=== PATIENT | female | born 1985 | race Caucasian/White ===

== ENCOUNTER → 2025-01-22 | Outpatient (CLI) | payer BC, SELFPAY ==
[2025-01-22 09:39] LABS: Basophils # (Auto) 0.1 Thou/mm3 (0.0-0.2); Basophils % (Auto) 1 % (0-2.5); Eosinophils # (Auto) 0.2 Thou/mm3 (0.0-0.5); Eosinophils % (Auto) 3 % (0-10); Hematocrit 42.3 % (36.0-46.0); Hemoglobin 14.6 g/dL (12.0-16.0); Immature Granulocytes % (Auto) 0 % (0-0); Immature Granulocytes Auto 0.02 Thou/mm3 (0.00-0.00); Lymphocytes # (Auto) 2.7 Thou/mm3 (1.0-4.8); Lymphocytes % (Auto) 40 % (10-50); Mean Corpuscular HGB Conc 34.5 g/dl (31.0-37.0); Mean Corpuscular Hemoglobin 30.9 pg (25.0-35.0); Mean Corpuscular Volume 89 fL (80-100); Monocytes # (Auto) 0.5 Thou/mm3 (0.0-0.8); Monocytes % (Auto) 7 % (0-12); Neutrophils # (Auto) 3.3 Thou/mm3 (1.8-7.7); Neutrophils % (Auto) 49 % (37-80); Nucleated Red Blood Cell % 0 /100 WBC (0); Platelet Count 279 Thou/mm3 (140-440); RDW Standard Deviation 37.4 fL (36.4-46.3); Red Blood Count 4.73 Miln/mm3 (4.00-5.20); White Blood Count 6.7 Thou/mm3 (3.6-11.0)
[2025-01-22 09:58] LABS: Alanine Aminotransferase 38 U/L (10-49); Albumin, Serum 4.5 gm/dL (3.5-5.0); Albumin/Globulin Ratio 1.5 (1.2-2.2); Alkaline Phosphatase 59 U/L (46-116); Anion Gap 9 (7-16); Aspartate Amino Transferase 31 U/L (0-34); BUN/Creatinine Ratio 22 Ratio (12-20); Bilirubin,Total 1.2 mg/dL (0.3-1.2); Blood Urea Nitrogen 11 mg/dL (9-23); Carbon Dioxide 25.2 mMol/L (20.0-31.0); Chloride 106 mMol/L (98-107); Creatinine (Component) 0.5 mg/dL (0.6-1.3); Glucose 90 mg/dL (74-106); Osmolality,Calculated 278 (275-295); Potassium 4.4 mMol/L (3.4-5.1); Sodium 140 mMol/L (136-145); Thyroid Stimulating Hormone 0.02 uIU/mL (0.55-4.78); Total Protein 7.5 gm/dL (5.7-8.2); eGFR > 60 See Note
[2025-01-22 10:10] LABS: Collection Type, Urine Clean Catch
[2025-01-22 11:36] LABS: Bilirubin,Urine Negative (Negative); Blood,Urine Negative (Negative); Clarity,Urine Clear (Clear/Hazy); Color,Urine Yellow (Lt Yel-Yel); Glucose, Urine Negative (Negative); Ketones,Urine Negative (Negative); Leukocyte Esterase,Urine Negative (Negative); Nitrite,Urine Negative (Negative); Protein,Urine Negative (Neg - Trace); RBC,Urine 2 /hpf (0-3); Specific Gravity,Urine 1.023 (1.001-1.035); Squamous Epithelial Cell,Urine 3 /hpf (0-5); Urobilinogen,Urine Negative mg/dL (0.0-1.0); WBC,Urine 1 /hpf (0-5)
[2025-01-22 14:47] LABS: Glucose Estimated Average 97 mg/dL (80-131)
[2025-01-22 15:04] LABS: Cardiac Risk Estimate 5.3 RATIO (3.7-5.6); Cholesterol 191 mg/dL (132-200); HDL Cholesterol 36 mg/dL (40-60); LDL Cholesterol,Calculated 101 mg/dL (0-130); Triglycerides 269 mg/dL (30-150); Uric Acid 5.1 mg/dL (3.1-7.8)
[2025-01-22 15:08] LABS: Vitamin B12 655 pg/mL (211-911); Vitamin D 25 Hydroxy Total 54.6 ng/mL (7.3-40.2)
== END | disposition home or self-care (01) ==
LOC: COPL 08:01
PROVIDERS: PCP Internal Medicine; Referring Provider Internal Medicine; Visit Provider Internal Medicine
DX: Z00.00 Encounter for general adult medical examination without abnormal findings (principal)
CPT/HCPCS: 36415; 80053; 80061; 81001; 82306; 82607; 83036; 84443; 84550; 85025

== ENCOUNTER 2025-10-28 19:32 | Emergency (ER) | payer BC, SELFPAY ==
[2025-10-28 19:33] VITALS: BMI 31.1
[2025-10-28 20:13] VITALS: BP 154/110; BP 164/108; PULSE 116; RESP 18; TEMP 37.1; O2SAT 97
--- NOTE | 2025-10-28 20:18 | XR_ITS ---
Examination: CT abdomen and pelvis without contrast. Coronal 3-D reconstructions. Sagittal 2-D reconstructions. Date and time of exam: October 28, 2025, 10:50 p.m. INDICATIONS: Blood in urine today, abdominal pain CTDI: vol (mGy): 10.2 DLP: (mGycm): 572 Technique: Axial images of the abdomen have been obtained, 3 mm slice thickness Intravenous contrast material has not been administered. Low dose protocols were performed. One or more of the following dose reduction techniques were used; automated exposure control, adjustment of the mA and/or KV according to patient size, use of iterative reconstruction technique. Findings: No focal liver or splenic lesions No gallstones No pancreatic or adrenal mass No renal or ureteral calculi, no hydronephrosis Aorta normal size No bowel obstruction Normal appendix Anteverted uterus Fat-containing left adnexal mass 14 mm No bladder mass or bladder calculi Osseous structures intact IMPRESSION: No renal or ureteral calculi, no hydronephrosis Normal appendix 14 mm fat-containing left adnexal mass, dermoid tumor, consider pelvic sonography follow-up No bladder mass or bladder calculi
--- NOTE | 2025-10-28 20:19 | PD.EDRME ---
Rapid Medical Screening Exam E Arrival date/time: 10/28/25 19:32 40F with history of hypothyroidism and HTN presents to ED with several hours of sudden R flank/pelvic pain and hematuria, as well as some N/V. Patient is not on her cycle. Chief Complaint: Back Pain/Injury Vital signs: Vital Signs Temperature 98.8 F 10/28/25 20:13 Pulse Rate 116 H 10/28/25 20:13 Respiratory Rate 18 10/28/25 20:13 Blood Pressure 164/108 H 10/28/25 20:13 Pulse Oximetry (%) 97 10/28/25 20:13 Oxygen Delivery Method Room Air 10/28/25 20:13 Exam: No gross CVA tenderness. Appears to be in pain. Clinical Impression: UTI/pyelo vs kidney stone vs torsion vs appy
[2025-10-28 20:28] LABS: Collection Type, Urine Clean Catch
[2025-10-28] MEDS: ONDANSETRON ODT 4 MG TABRAP PO (20:28)
[2025-10-28] MEDS: KETOROLAC INJ 60 MG/2 ML VIAL IM (20:35)
[2025-10-28 20:40] LABS: Bacteria,Urine Rare; Bilirubin,Urine Negative (Negative); Blood,Urine 3+ (Negative); Color,Urine Red (Lt Yel-Yel); Glucose, Urine Negative (Negative); Ketones,Urine Negative (Negative); Leukocyte Esterase,Urine Positive (Negative); Nitrite,Urine Negative (Negative); PH,Urine 6.0 (5.0-7.0); Protein,Urine 2+ (Neg - Trace); RBC,Urine 6036 /hpf (0-3); Specific Gravity,Urine 1.016 (1.001-1.035); Urobilinogen,Urine Negative mg/dL (0.0-1.0)
[2025-10-28 20:41] LABS: Clarity,Urine Turbid (Clear/Hazy); Culture Indicated,Urine Contaminated; Squamous Epithelial Cell,Urine 12 /hpf (0-5); WBC,Urine 186 /hpf (0-5)
[2025-10-28 20:44] LABS: Amphetamine/Methamp Scrn,U Negative (Negative); Barbiturate Screen,Urine Negative (Negative); Benzodiazepines Screen,Urine Negative (Negative); Benzoylecgonine Screen, Ur Negative (Negative); Fentanyl Screen,Urine Negative (Negative); Opiate Screen,Urine Negative (Negative); THC Screen,Urine Negative (Negative)
[2025-10-28 20:49] LABS: Basophils # (Auto) 0.1 Thou/mm3 (0.0-0.2); Basophils % (Auto) 1 % (0-2.5); Eosinophils # (Auto) 0.1 Thou/mm3 (0.0-0.5); Eosinophils % (Auto) 1 % (0-10); Hematocrit 41.7 % (36.0-46.0); Hemoglobin 14.2 g/dL (12.0-16.0); Immature Granulocytes Auto 0.04 Thou/mm3 (0.00-0.00); Lymphocytes # (Auto) 4.1 Thou/mm3 (1.0-4.8); Lymphocytes % (Auto) 24 % (10-50); Mean Corpuscular HGB Conc 34.1 g/dl (31.0-37.0); Mean Corpuscular Hemoglobin 30.7 pg (25.0-35.0); Mean Corpuscular Volume 90 fL (80-100); Monocytes # (Auto) 1.2 Thou/mm3 (0.0-0.8); Monocytes % (Auto) 7 % (0-12); Neutrophils # (Auto) 11.3 Thou/mm3 (1.8-7.7); Neutrophils % (Auto) 67 % (37-80); Nucleated Red Blood Cell # 0.00 Thou/mm3 (0.00-0.00); Nucleated Red Blood Cell % 0 /100 WBC (0); Platelet Count 270 Thou/mm3 (140-440); RDW Standard Deviation 38.6 fL (36.4-46.3); Red Blood Count 4.63 Miln/mm3 (4.00-5.20); White Blood Count 16.8 Thou/mm3 (3.6-11.0)
[2025-10-28 20:50] LABS: HCG Qualitative,Urine Negative
[2025-10-28 21:06] LABS: Alanine Aminotransferase 32 U/L (10-49); Albumin, Serum 4.6 gm/dL (3.5-5.0); Albumin/Globulin Ratio 1.3 (1.2-2.2); Alkaline Phosphatase 66 U/L (46-116); Anion Gap 9 (7-16); Aspartate Amino Transferase 28 U/L (0-34); BUN/Creatinine Ratio 17 Ratio (12-20); Bilirubin,Total 0.6 mg/dL (0.3-1.2); Blood Urea Nitrogen 10 mg/dL (9-23); Calcium 9.5 mg/dL (8.3-10.6); Calcium (Corrected) 9.5 mg/dL (8.5-10.1); Carbon Dioxide 26.0 mMol/L (20.0-31.0); Chloride 104 mMol/L (98-107); Creatinine (Component) 0.6 mg/dL (0.6-1.3); Estimated Creatinine Clearance 156.5 mL/min (>60); Globulin 3.5 gm/dL (2.3-3.5); Glucose 90 mg/dL (74-106); Osmolality,Calculated 276 (275-295); Potassium 3.9 mMol/L (3.4-5.1); Sodium 139 mMol/L (136-145); Total Protein 8.1 gm/dL (5.7-8.2); eGFR > 60 See Note
[2025-10-28 23:48] VITALS: BP 134/93; BP 144/108; PULSE 93; RESP 19; TEMP 36.6; O2SAT 98
[2025-10-29] VITALS (8 sets, daily range): BP systolic 114–143; BP diastolic 77–102; PULSE 78–100; RESP 10–96; TEMP 36.8–37; O2SAT 96–99
--- NOTE | 2025-10-29 | XR_ITS ---
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
--- NOTE | 2025-10-29 00:06 | EDNOTE_ITS ---
ED Abdominal Pain RME/HPI General Chief Complaint: Back Pain/Injury Stated complaint: I THINK I HAVE KIDNEY STONES, BLOOD IN URINE Time seen by provider: 10/28/25 21:17 Arrival date/time: 10/28/25 19:32 RME / HPI RME / HPI narrative: 10/28/25 19:32 40F with history of hypothyroidism and HTN presents to ED with several hours of sudden R flank/pelvic pain and hematuria, as well as some N/V. Patient is not on her cycle. DR. SORENSEN MAIN ED EVALUATION: 40 y/o female with Hx of PCOS, Genital Herpes, and recent Bartholin Cyst presents to ED c/o BL pelivc pain, worse on the left, fever, nausea, and hematuria x 1 day. Patient also reports subsided right flank pain. Denies vomiting or diarrhea. Also denies vaginal discharge or Hx of Chlamydia and Gonorrhea. Patient's PCOS is overseen by Dr. Wright. Denies history of abdominal surgeries. Patient is passing gas having regular bowel movements. Patient states that she had a fever at home, took Tylenol prior to arrival. Has also had chills. Denies drugs alcohol smoking. Denies vaginal discharge. Exam: No gross CVA tenderness. Appears to be in pain. Impression: UTI/pyelo vs kidney stone vs torsion vs appy Related Data Home Medications ?Medication ?Instructions ?Recorded ?Confirmed thyroid (pork) 120 mg tablet 120 mg PO QDAY 02/05/22 0 02/07/22 (Harshaw Thyroid) ergocalciferol (vitamin D2) 1,250 1,250 mcg PO QWEEK 0 02/07/22 02/07/22 mcg (50,000 unit) capsule (Vitamin D2) norethindrone (contraceptive) 0.35 0.35 mg PO QDAY 02/07/22 mg tablet (Azucena) Previous Rx's ?Medication ?Instructions ?Recorded sulfamethoxazole 800 1 tab PO BID #10 tabs mg-trimethoprim 160 mg tablet (Bactrim DS) metronidazole 500 mg tablet 500 mg PO BID #14 tabs Allergies Allergy/AdvReac Type Severity Reaction Status Date / Time No Known Allergies Allergy Verified 10/28/25 19:33 Review of Systems Review of Systems Systems Reviewed: All systems reviewed, normal except as documented Past Medical History Past Medical History REPRODUCTIVE: Positive Genital Herpes and Hx Polycystic Ovarian Syndrome ENDOCRINE: Positive Endocrine Disorders (hashimotos) and Parathyroid Disease ED Exam Narrative Physical exam: GEN. APPEARANCE: The patient is alert awake oriented X-3 in no distress, lying down comfortably, does not look ill/toxic. Patient has good eye contact. Patient is cooperative. VITALS: All vitals were reviewed and the pulse ox is 97% on room air which is normal according to my interpretation. HEENT: Normocephalic, atraumatic. Pupils are equal and reactive. Oral mucosa is moist. Patent Nares NECK: Supple, nontender, no thyromegaly, no meningismus, no JVD CHEST: Symmetrical, atraumatic, and with equal expansion , Nontender on palpation no deformity and no crepitus. CARDIOVASCULAR: Heart regular rhythm no murmur or gallop rub or extra beats. LUNGS: Clear to auscultation bilaterally with symmetrical chest rise. No laboring tachypnea or wheezing. No intercostal subcostal retraction. No rales and no rhonchi. ABDOMEN: Soft, flat, nontender to palpation, no guarding or rebound tenderness. There are no abnormal masses palpated. Active and normal bowel sounds. No flank pain. PELVIC: Perineal skin intact, No violaceous change, 2 cm raised area at the right labia majora without discharge, nontender. Per patient has not changed since last director of diversity and inclusion visit SKIN: Warm and dry, no jaundice or rashes noted. PSYCHIATRIC: Patient is in normal mood and affect. 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 Course Course Course Narrative: 0003: Sepsis alert initiated. Orders made at this time are congruent with ED Adult Sepsis Order List. Re-evaluation is to be completed. Quality Measures Current suspected stage: sepsis Possible source: genitourinary Blood cultures or dered: yes Antibiotic ordered: Yes Pertinent labs: 10/28/25 10/29/25 20:30 00:50 Lactic Acid 0.9 mMol/L (0.4-2.0) Procalcitonin < 0.04 ng/ml (0.0-0.49) sepsis Orders Category Date Time Status admission [Admit to Inpatient Status] Routine Admission 10/29/25 05:57 Active Bedside Blood Glucose NOW Care 10/29/25 00:16 Active COVID-19 Screening Questionnaire NOW Care 10/29/25 05:04 Active Registered Dietitian Q4H START 00 Care 10/29/25 00:16 Active Insert IV NOW Care 10/29/25 00:16 Active MRI Screening NOW Care 10/29/25 08:39 Active Miscellaneous Nursing Order NOW Care 10/29/25 10:54 Active Strict Intake and Output Routine Care 10/29/25 00:16 Ordered Consult to Gynecology Stat Cons 10/29/25 05:58 Ordered Diet Regular Diet 10/29/25 Breakfast Active Discharge Routine Discharge 10/29/25 15:[address] abdomen pelvis wo con Stat Exams 10/28/25 20:18 Completed MR pelvis w con Stat Exams 10/29/25 Completed US pelvic complete Stat Exams 10/29/25 00:08 Completed US transvaginal Stat Exams 10/29/25 00:09 Completed US transvaginal Stat Exams 10/29/25 08:26 Completed A1C [Glycohemoglobin w (eAG)] Routine Lab 10/29/25 00:50 Completed Blood Culture (Lab) Stat Lab 10/29/25 00:40 Completed C-Reactive Protein Stat Lab 10/28/25 20:30 Completed CA 125 Stat Lab 10/29/25 00:50 Completed CBC Routine Lab 10/29/25 13:58 Completed CBC Stat Lab 10/28/25 20:30 Completed CMP [Comprehensive Metabolic Panel] Stat Lab 10/28/25 20:30 Completed Carcinoembryonic Antigen Stat Lab 10/29/25 00:50 Completed Chlamydia/GC/TV - PCR Stat Lab 10/29/25 09:40 Completed Drug Screen,Urine Stat Lab 10/28/25 20:26 Completed HCG Qualitative,Urine Stat Lab 10/28/25 20:23 Completed Lactic Acid [Lactate (Lactic Acid)] Stat Lab 10/29/25 00:50 Completed Procalcitonin Stat Lab 10/28/25 20:30 Completed Prothrombin Time with INR Stat Lab 10/29/25 00:50 Completed Sed Rate (ESR) Stat Lab 10/28/25 20:30 Completed TSH [Thyroid Stimulating Hormone] Routine Lab 10/29/25 00:50 Completed Urinalysis Routine Lab 10/29/25 09:40 Completed Urinalysis, C/S if Indicated Stat Lab 10/28/25 20:23 Completed Acetaminophen Tab [Tylenol Tab] Med 10/29/25 07:43 Discontinued 325 mg PO Q6HR PRN Doxycycline [Vibramycin] Med 10/29/25 09:00 Discontinued 100 mg PO BID Doxycycline [Vibramycin] Med 10/29/25 00:11 Discontinued 100 mg PO X1 ONE Ketorolac Inj [Toradol Inj] Med 10/28/25 20:18 Discontinued 60 mg IM X1 ONE Ondansetron Odt [Zofran Odt] Med 10/28/25 20:18 Discontinued 4 mg PO X1 ONE Ringers Lactated 1000 ml [Lactated Ringers] 1,000 ml Med 10/29/25 00:10 Discontinued IV 999 mls/hr Thyroid [Harshaw Thyroid] Med 10/29/25 09:00 Discontinued 180 mg PO QDAY Trimethoprim/Sulfa 160/800 Ds [Bactrim Ds] Med 10/29/25 09:00 Discontinued 1 tab PO BID cefTRIAXone/D5w 1gm IV premix [Rocephin/D5w 1gm IV Med 10/29/25 21:00 Discontinued premix] 1 gm in 50 ml IV QPM cefTRIAXone/D5w 1gm IV premix [Rocephin/D5w 1gm IV Med 10/29/25 00:11 Discontinued premix] 1 gm in 50 ml IV STAT metroNIDAZOLE/NS 500 MG IVPB [Flagyl 500 mg IV] Med 10/29/25 09:00 Discontinued 500 mg in 100 ml IV BID metroNIDAZOLE/NS 500 MG IVPB [Flagyl 500 mg IV] Med 10/29/25 00:11 Discontinued 500 mg in 100 ml IV STAT norethindrone (contraceptive) [Azucena] Med 10/29/25 09:00 Discontinued 0.35 mg PO QDAY Code Status Routine Oth 10/29/25 05:57 Completed Late Tray Request Routine Oth 10/29/25 12:37 Active Oxygen Delivery NOW RT 10/29/25 00:16 Active Vital Signs Vital signs: Vital Signs Temperature 98.8 F 10/28/25 20:13 Pulse Rate 116 H 10/28/25 20:13 Respiratory Rate 18 10/28/25 20:13 Blood Pressure 164/108 H 10/28/25 20:13 Pulse Oximetry (%) 97 10/28/25 20:13 Oxygen Delivery Method Room Air 10/28/25 20:13 Abdominal Pain MDM MDM Narrative MDM Narrative:: Scribe Attestation: I, Karissa Alarcon, am scribing for and in the presence of Dr. Sorensen. Provider Notation: Although this document has been carefully reviewed, there may still be some phonetic and other typographical errors. These errors are purely grammatical due to imperfections in the software program and should not be construed in any way to compromise the substance of the patient's medical care during this visit. Patient is a 40-year-old female with medical history notable for hypothyroidism, PCOS that is in the emergency department with concerns for abdominal pain, flank pain. Vital signs and exam as listed. Prior provider evaluated patient ordered labs, CT abdomen pelvis without contrast as well as offered medications for symptom relief. Concern for , gastritis, urolithiasis, pyelonephritis, urinary tract infection among others. Labs with evidence of leukocytosis 16.8, no left shift. Hemoglobin is 14.2 patient without any acute metabolic disturbance, urinalysis is turbid, has blood, positive for leuk esterase, 6000 red blood cells, 186 white blood cells. rare bacteria concerning for infection. Will provide antibiotics. Patient is not . Drug screen negative. CT abdomen pelvis without contrast notable for a 14 mm fat-containing left adnexal mass. Ordered pelvic as well as transvaginal ultrasound. Pelvic ultrasound did not identify any acute abnormalities. Transvaginal ultrasound showed a hyperechoic lesion measuring 1.7 x 1.4 x 1.8 cm on the left ovary. 4:45a discussed case with on-call delicatessen clerk Dr. Fabian, request that we admit to the hospitalist service and that she will consult and examine the patient. I discussed patient's lesion at her labia majora as well as her pelvic pain labs as well as CT and ultrasound. States that the lesion on her left ovary is small and less likely the cause of her symptoms. Agrees with admission. States that she will examine the patient as well as the lesion on her right labia when she evaluates the patient. 4:50a discussed case with hospitalist Dr. Rodriguez. Kindly accepts patient for admission Patient data External records reviewed:: [facility] previous records (Reviewed prior ED records from 07/25/24. Patient was seen for Bartholin gland cyst.) Clinical information provided by:: patient Social determinants that could affect healthcare access:: none Patient has the following chronic illnesses:: Genital Herpes, Hx Polycystic Ovarian Syndrome, Hashimotos, and Parathyroid Disease How is presenting disease/condition affected by chronic disease/condition?: exacerbated by Evaluation data The following diagnostics were reviewed and interpreted by me:: lab results and radiology exam(s) Lab and/or radiology exams considered but not ordered:: None Interpretation Summary: RADIOLOGY Abdomen/Pelvis CT: Findings: No focal liver or splenic lesions No gallstones No pancreatic or adrenal mass No renal or ureteral calculi, no hydronephrosis Aorta normal size No bowel obstruction Normal appendix Anteverted uterus Fat-containing left adnexal mass 14 mm No bladder mass or bladder calculi Osseous structures intact IMPRESSION: No renal or ureteral calculi, no hydronephrosis Normal appendix 14 mm fat-containing left adnexal mass, dermoid tumor, consider pelvic sonography follow-up No bladder mass or bladder calculi Transvaginal US: Findings: The uterus is normal in size measuring 8.6 x 3.9 x 5.3 cm. The endometrium is unremarkable and measures 0.4 cm. Cystic lesion in the cervix measures 0.4 cm. The right ovary measures 3.4 x 2.3 x 2.7 cm, follicles noted. The left ovary measures 3.5 x 2.4 x 2.9 cm, hyperechoic lesion measuring 1.7 x 1.4 x 1.8 cm. Both ovaries demonstrate color flow and spectral waveforms on Doppler evaluation. There is no adnexal mass. There is no free fluid on the submitted images. Impression: No evidence of ovarian torsion. Hyperechoic lesion in the left ovary, correlation with MRI for characterization is recommended. Pelvis US: Findings: The uterus is normal in size measuring 9.5 x 3.8 x 5.3 cm. The endometrium is unremarkable and measures 0.7 cm. The right ovary measures 3.5 x 2.2 x 2.1 cm and is unremarkable. The left ovary was not visualized. The right ovary demonstrates color flow and spectral waveforms on Doppler evaluation. There is no adnexal mass. There is no free fluid on the submitted images. Impression: The left ovary was not visualized. No abnormalities detected by transabdominal ultrasound. Medications / Prescriptions Medications or Prescriptions considered but not ordered:: None Medication administrations:: Medication Administration History Discontinued Medications Acetaminophen (Acetaminophen 325 Mg Tablet) 325 mg PO Q6HR PRN PRN Reason: fever > 100.4 or pain 1-3 Stop: 11/28/25 07:42 Doxycycline Hyclate (Doxycycline 100 Mg Tablet) 100 mg PO X1 ONE Stop: 10/29/25 00:12 Last Admin: 10/29/25 00:51 Dose: 100 mg Documented By: ELAINE Doxycycline Hyclate (Doxycycline 100 Mg Tablet) 100 mg PO BID RUFINA Stop: 11/05/25 08:59 Last Admin: 10/29/25 09:53 Dose: 100 mg Documented By: LYDIA Lactated Ringer's (Lactated Ringers) 1,000 mls @ 999 mls/hr IV .Q1H1M ONE Stop: 10/29/25 01:10 Last Infusion: 10/29/25 01:41 Dose: Infused Documented By: Admin: 10/29/25 00:39 Dose: 999 mls/hr Documented By: ELAINE Ceftriaxone Sodium/Dextrose (Rocephin/D5w 1gm Iv Premix) 1 gm in 50 mls @ 100 mls/hr IV STAT STA Stop: 10/29/25 00:40 Last Infusion: 10/29/25 02:42 Dose: Infused Documented By: Admin: 10/29/25 01:42 Dose: 100 mls/hr Documented By: ELAINE Metronidazole (Flagyl 500 Mg Iv) 500 mg in 100 mls @ 200 mls/hr IV STAT STA Stop: 10/29/25 00:40 Last Infusion: 10/29/25 01:31 Dose: Infused Documented By: Admin: 10/29/25 00:51 Dose: 200 mls/hr Documented By: ELAINE Ceftriaxone Sodium/Dextrose (Rocephin/D5w 1gm Iv Premix) 1 gm in 50 mls @ 100 mls/hr IV QPM RUFINA Stop: 11/05/25 20:59 Metronidazole (Flagyl 500 Mg Iv) 500 mg in 100 mls @ 200 mls/hr IV BID RUFINA Stop: 11/05/25 08:59 Last Infusion: 10/29/25 10:31 Dose: Infused Documented By: Admin: 10/29/25 09:58 Dose: 200 mls/hr Documented By: DB Ketorolac Tromethamine (Ketorolac Inj 60 Mg/2 Ml Vial) 60 mg IM X1 ONE Stop: 10/28/25 20:19 Last Admin: 10/28/25 20:35 Dose: 60 mg Documented By: Non-Formulary Medication (Norethindrone (Contraceptive) [Azucena]) 0.35 mg PO QDAY [facility] Stop: 11/28/25 08:59 Ondansetron HCl (Ondansetron Odt 4 Mg Tabrap) 4 mg PO X1 ONE; Protocol Stop: 10/28/25 20:19 Last Admin: 10/28/25 20:28 Dose: 4 mg Documented By: NIKI Thyroid (Thyroid 30 Mg Tablet) 180 mg PO QDAY [facility] Stop: 11/28/25 08:59 Last Admin: 10/29/25 09:56 Dose: 180 mg Documented By: LYDIA Trimethoprim/Sulfamethoxazole (Trimethoprim/Sulfa 160/800 Ds Tablet) 1 tab PO BID [facility] Stop: 11/05/25 08:59 Last Admin: 10/29/25 09:52 Dose: 1 tab Documented By: LYDIA See above if any Consultations Consultation(s) initiated? (list below): Yes Consultation #1 (Physician, Specialty, Details): Dr. Fabian made aware of the patient?s HPI, PMHx, lab and/or radiology results. Discussed treatment plan. Will consult an admission to the hospitalist. Time: 04:47 Consultation #2 (Physician, Specialty, Details): Discussed with Dr. Mullen for admission. Reviewed the patient?s HPI, PMHx, lab and/or radiology results. Discussed treatment plan. Will consult an admission to the hospitalist. Time: 04:53 Consultation #3 (Physician, Specialty, Details): Dr. Rubalcava made aware of the patient?s HPI, PMHx, lab and/or radiology results. Discussed treatment plan. Will consult an admission to the hospitalist. Time: 04:55 Diagnosis Differential diagnosis abdominal pain: endometriosis and other (Ovarian Cyst, Ruptured Ovaria Cyst, Bartholin Cyst, Pelvic Inflammatory Disease, PCOS) Most likely diagnosis given after review of the tests above:: SIRS (systemic inflammatory response syndrome), UTI (urinary tract infection), Ovarian mass, Pelvic pain Admission Indicated Admission indicated?: indicated Explain why admission is indicated or not indicated:: SIRS (systemic inflammatory response syndrome), UTI (urinary tract infection), Ovarian mass, Pelvic pain Admission Request Was there a request for admission?: Yes Admission Attestation Admission request attestation: Discussed case with Hospitalist service regarding admission. Discussed patients ED course, exam findings, labs, and radiology results. The Hospitalist [agrees] to accept the patient for admission. Disposition Plan Disposition Plan: Admit Discharge Plan Plan Patient Disposition: Admit Acute Care w/in Hospital Prescriptions/Referrals Prescriptions/Med Rec: New metronidazole 500 mg tablet 500 mg PO BID Qty: 14 0RF Continued thyroid (pork) [Harshaw Thyroid] 120 mg Tablet 120 mg PO QDAY ergocalciferol (vitamin D2) [Vitamin D2] 1,250 mcg (50,000 unit) Capsule 1,250 mcg PO QWEEK norethindrone (contraceptive) [Azucena] 0.35 mg Tablet 0.35 mg PO QDAY sulfamethoxazole-trimethoprim [Bactrim DS] 800-160 mg tablet 1 tab PO BID Qty: 10 0RF Referrals: Eleanor Rubalcava MD [Primary Care Provider, Nephrology] Problem List Clinical Impression: SIRS (systemic inflammatory response syndrome), UTI (urinary tract infection), Ovarian mass, Pelvic pain Patient/Caregiver Discharge Instructions Discharge Activity: activity as tolerated Additional Instructions: f/u with Dr. Rubalcava, Dr. Oneill- 1-2 weeks Print Language: Romansh Stand Alone Forms: Flor Award Info., Patient Portal Info Letter
--- NOTE | 2025-10-29 00:08 | XR_ITS ---
Examination: Pelvic ultrasound, transabdominal, complete Technique: Transabdominal ultrasound of the pelvis performed using grayscale imaging Date and time of exam: October 29, 2025, 0202 hours INDICATIONS: Pelvic pain, urinary tract infections today FINDINGS: Uterus 9.5 cm endometrial stripe 0.68 cm No uterine mass or intrauterine gestation Right ovary 3.5 cm arterial flow Left ovary obscured by bowel gas IMPRESSION: Limited study No uterine mass or intrauterine gestation
--- NOTE | 2025-10-29 00:09 | XR_ITS ---
Examination: Transvaginal ultrasound of the pelvis, complete Technique: Transvaginal sonographic images pelvis performed using moreno scale imaging Exam date and time: October 29, 2025, 0208 hours INDICATION: Pelvic pain severe urinary tract infections several days. FINDINGS: Uterus 8.6 cm no uterine mass or intrauterine gestation Endometrial size 0.36 cm Right ovary 3.4 cm arterial flow, 9 mm follicular cyst Left ovary 3.5 cm arterial flow, solid mass left ovary 17 x 14 x 18 mm IMPRESSION: No uterine mass or intrauterine gestation Solid left ovarian mass 17 x 14 x 18 mm, differential would include endometrioma, early ovarian tumor, recommend repeat pelvic sonography in the a.m with a different technologist.
[2025-10-29] MEDS: RINGERS LACTATED 1000 ML 1,000 ML 999 ML IV (00:39)
[2025-10-29] MEDS: DOXYCYCLINE 100 MG TABLET PO ×2 (00:51→09:53)
[2025-10-29] MEDS: metroNIDAZOLE/NS 500 MG IVPB 500 MG/100 ML BAG 200 MG IV ×2 (00:51→09:58)
[2025-10-29 00:59] LABS: Lactate (Lactic Acid) 0.9 mMol/L (0.4-2.0)
[2025-10-29 01:06] LABS: Sed Rate (ESR) 28 mm/hr (0-20)
[2025-10-29 01:16] LABS: INR 1.1 (0.9-1.3); Prothrombin Time 11.4 Seconds (9.0-12.2)
[2025-10-29 01:34] LABS: C-Reactive Protein < 0.5 mg/dL (0.0-0.9); Procalcitonin < 0.04 ng/ml (0.0-0.49)
[2025-10-29] MEDS: cefTRIAXone/D5w 1gm IV premix 1 GM/50 ML BAG IV (01:42)
--- NOTE | 2025-10-29 04:16 | PRELIM_ITS ---
Pelvic ultrasound (transabdominal) with Doppler and wave Doppler spectral analysis. October 29, 2025 at 0202 hours Clinical history: Adnexal mass. Technique: Real-time, grayscale, transabdominal pelvic ultrasound was performed using Duplex scanning including arterial inflow, venous outflow, color and spectral Doppler. Comparison: None available at the time of this report. Findings: The uterus is normal in size measuring 9.5 x 3.8 x 5.3 cm. The endometrium is unremarkable and measures 0.7 cm. The right ovary measures 3.5 x 2.2 x 2.1 cm and is unremarkable. The left ovary was not visualized. The right ovary demonstrates color flow and spectral waveforms on Doppler evaluation. There is no adnexal mass. There is no free fluid on the submitted images. Impression: The left ovary was not visualized. No abnormalities detected by transabdominal ultrasound. Report Electronically Signed By: Sheldon Vazquez 10/29/2025 4:15:59 AM [EST]
--- NOTE | 2025-10-29 04:18 | PRELIM_ITS ---
Pelvic ultrasound (transvaginal) with Doppler and wave Doppler spectral analysis. October 29, 2025 at 0208 hours Clinical history: Tubo-ovarian abscess, mass. Technique: Real-time, grayscale, transvaginal pelvic ultrasound was performed using Duplex scanning including arterial inflow, venous outflow, color and spectral Doppler. Comparison: None available at the time of this report. Findings: The uterus is normal in size measuring 8.6 x 3.9 x 5.3 cm. The endometrium is unremarkable and measures 0.4 cm. Cystic lesion in the cervix measures 0.4 cm. The right ovary measures 3.4 x 2.3 x 2.7 cm, follicles noted. The left ovary measures 3.5 x 2.4 x 2.9 cm, hyperechoic lesion measuring 1.7 x 1.4 x 1.8 cm. Both ovaries demonstrate color flow and spectral waveforms on Doppler evaluation. There is no adnexal mass. There is no free fluid on the submitted images. Impression: No evidence of ovarian torsion. Hyperechoic lesion in the left ovary, correlation with MRI for characterization is recommended. Report Electronically Signed By: Sheldon Vazquez 10/29/2025 4:18:01 AM [EST]
--- NOTE | 2025-10-29 08:26 | XR_ITS ---
Examination: Transvaginal ultrasound of the pelvis, complete Technique: Transvaginal sonographic images pelvis performed using moreno scale imaging Exam date and time: October 29, 2025, 1037 hours INDICATIONS: Solid left ovarian mass 17 x 14 x 18 mm on pelvic sonogram this morning, pelvic pain urinary tract infection several days FINDINGS: Uterus 9.0 cm endometrial stripe 0.4 cm No uterine mass Right ovary 3.1 cm x 3.2 cm arterial flow small follicles Left ovary 3.7 cm arterial flow hyperechoic mass 18 x 13 x 17 mm small follicles IMPRESSION: Left ovarian 18 x 13 x 17 mm dermoid tumor.
--- NOTE | 2025-10-29 08:56 | PD.RESHP ---
Documentation for date of: 10/29/25 [facility] History of Present Illness Chief complaint: Gross hematuria, left pelvic pain History of present illness: Patient is a 40 year old female with past medical history of PCOS, genital herpes, bartholin cyst, hypothyroidism who presented to ED overnight on 10/28 for bilateral pelvic pain, worse on the left, fever, nausea, and hematuria for the past day. Also endorsed right flank pain that has improved and fever that resolved after taking Tylenol at home. Denies nausea, vomiting, diarrhea, vaginal discharge/odor. Follows Dr. Hart and Dr. Rubalcava outpatient. In ED, patient was hypertensive with BP 164/108 and tachycardic with HR 116. Afebrile. WBC elevated at 16, otherwise labs were unremarkable. Negative lactic and procal. Negative HCG. UA showed red turbid urine with 2+ protein, leukocyte esterase positive, RBC 6036, WBC 186, rare bacteria CT AP showed anteverted uterus and fat containing left 14 mm left adnexal mass, negative for renal or ureteral calculi, no hydronephrosis. Pelvic US limited. Transvaginal US showed solid left ovarian mass [address] Fabian consulted. Started on metronidazole, CFX, and doxycycline due to concern for potential ovarian abscess. Patient admitted for work up and concern for tubo-ovarian abscess. 10/19/25: Patient was evaluated at bedside in ED. Reports that hematuria has resolved since last night. Afebrile and vitals stale. Suspect patient passed renal stone. Mild pelvic tenderness on exam. No residual blood noted on vaginal exam. Will follow up with repeat UA and CBC in the afternoon. MR pelvis with contrast per president [employer]. Past Medical History: as above Family History: noncontributory Surgical History: none Social History: Denies history of smoking, denies current alcohol use, denies recreational drug use Current Medications: vit D2, Azucena OCP, [place] thyroid 120 mg daily, pending med rec Allergies: No known drug allergies Exam Vital Signs Temp Pulse Resp BP Pulse Ox O2 Del Method 98.6 F 94 18 114/88 H 98 Room Air 10/29/25 08:26 10/29/25 08:26 10/29/25 08:26 10/29/25 08:26 10/29/25 08:26 10/29/25 08:26 Narrative Exam Physical Exam General: Awake and in no acute distress. Conversational and non-toxic appearing. HEENT: Normocephalic, atraumatic, mucous membranes moist. Heart: Regular rate and rhythm, normal S1 and S2, no murmurs appreciated. Lungs: Clear to auscultation with no wheezing or crackles. Abdomen: Soft, nondistended, positive bowel sounds. Mild tenderness in pelvic region. No guarding or rebound tenderness. Neurologic: Alert and oriented x3, no gross neurological deficit, and patient able to move all 4 extremities. Extremities: No edema. Skin: No rash or ecchymoses. Results: Labs 10/29/25 13:58 10/28/25 20:30 Labs: Short CBC 10/28/25 Range/Units 20:30 WBC 16.8 H (3.6-11.0) Thou/mm3 Hgb 14.2 (12.0-16.0) g/dL Hct 41.7 (36.0-46.0) % Plt Count 270 (140-440) Thou/mm3 BMP 10/28/25 20:30 Sodium 139 Potassium 3.9 Chloride 104 Carbon Dioxide 26.0 BUN 10 Creatinine 0.6 Glucose 90 Calcium 9.5 Liver Function 10/28/25 Range/Units 20:30 Total Bilirubin 0.6 (0.3-1.2) mg/dL AST 28 (0-34) U/L ALT 32 (10-49) U/L Alkaline Phosphatase 66 (46-116) U/L Albumin 4.6 (3.5-5.0) gm/dL Urine 10/28/25 Range/Units 20:23 Urine Color Red A (Lt Yel-Yel) Urine Clarity Turbid A (Clear/Hazy) Urine pH 6.0 (5.0-7.0) Ur Specific [place] 1.016 (1.001-1.035) Urine Protein 2+ A (Neg - Trace) Urine Glucose (UA) Negative (Negative) Quality Measures Quality Measures sepsis Current suspected stage: ruled out Possible source: genitourinary Blood cultures ordered: yes Antibiotic ordered: Yes Medications Home Medications and Allergies Home Medications ?Medication ?Instructions ?Recorded ?Confirmed ?Type thyroid (pork) 120 mg tablet 120 mg PO QDAY 02/05/22 02/07/22 History ([place] Thyroid) ergocalciferol (vitamin D2) 1,250 1,250 mcg PO QWEEK 02/07/22 02/07/22 History mcg (50,000 unit) capsule (Vitamin D2) norethindrone (contraceptive) 0.35 0.35 mg PO QDAY 02/07/22 02/07/22 History mg tablet (Azucena) Allergies Allergy/AdvReac Type Severity Reaction Status Date / Time No Known Allergies Allergy Verified 10/28/25 19:33 Visit Medications Acetaminophen (Acetaminophen 325 Mg Tablet) 325 mg PO Q6HR PRN PRN Reason: fever > 100.4 or pain 1-3 Stop: 11/28/25 07:42 Doxycycline Hyclate (Doxycycline 100 Mg Tablet) 100 mg PO BID RUFINA Stop: 11/05/25 08:59 Ceftriaxone Sodium/Dextrose (Rocephin/D5w 1gm Iv Premix) 1 gm in 50 mls @ 100 mls/hr IV QPM RUFINA Stop: 11/05/25 20:59 Metronidazole (Flagyl 500 Mg Iv) 500 mg in 100 mls @ 200 mls/hr IV BID RUFINA Stop: 11/05/25 08:59 Non-Formulary Medication (Norethindrone (Contraceptive) [Azucena]) 0.35 mg PO QDAY RUFINA Stop: 11/28/25 08:59 Thyroid (Thyroid 30 Mg Tablet) 120 mg PO QDAY RUFINA Stop: 11/28/25 08:59 Trimethoprim/Sulfamethoxazole (Trimethoprim/Sulfa 160/800 Ds Tablet) 1 tab PO BID RUFINA Stop: 11/05/25 08:59 Discontinued Medications Doxycycline Hyclate (Doxycycline 100 Mg Tablet) 100 mg PO X1 ONE Stop: 10/29/25 00:12 Last Admin: 10/29/25 00:51 Dose: 100 mg Lactated Ringer's (Lactated Ringers) 1,000 mls @ 999 mls/hr IV .Q1H1M ONE Stop: 10/29/25 01:10 Last Infusion: 10/29/25 01:41 Dose: Infused Ceftriaxone Sodium/Dextrose (Rocephin/D5w 1gm Iv Premix) 1 gm in 50 mls @ 100 mls/hr IV STAT STA Stop: 10/29/25 00:40 Last Infusion: 10/29/25 02:42 Dose: Infused Metronidazole (Flagyl 500 Mg Iv) 500 mg in 100 mls @ 200 mls/hr IV STAT STA Stop: 10/29/25 00:40 Last Infusion: 10/29/25 01:31 Dose: Infused Ketorolac Tromethamine (Ketorolac Inj 60 Mg/2 Ml Vial) 60 mg IM X1 ONE Stop: 10/28/25 20:19 Last Admin: 10/28/25 20:35 Dose: 60 mg Ondansetron HCl (Ondansetron Odt 4 Mg Tabrap) 4 mg PO X1 ONE; Protocol Stop: 10/28/25 20:19 Last Admin: 10/28/25 20:28 Dose: 4 mg Assessment & Plan Plan Patient is a 40 year old female with past medical history of PCOS, genital herpes, bartholin cyst, hypothyroidism who presented to ED overnight on 10/28 for bilateral pelvic pain, worse on the left, fever, nausea, and hematuria for the past day. Admitted for tubo-ovarian abscess. #?Ureteric calculi, passed #Left ovarian mass versus tubo-ovarian abscess - Presented to ED for bilateral pelvic pain, worse on the left, fever, nausea, and arthur hematuria for the past day. Also had right CVA pain but resolved yesterday. Not on her menstrual cycle. - In ED, afebrile but tachycardic and hypertensive due to pain - UA showed red turbid urine with 2+ protein, leukocyte esterase positive, RBC 6036, WBC 186, rare bacteria - CT AP showed anteverted uterus and fat containing left 14 mm left adnexal mass, negative for renal or ureteral calculi, no hydronephrosis. - Transvaginal US showed solid left ovarian mass 17 mm. - S/p Zofran and Ketoralac overnight in ED - Suspect patient had passed renal calculi as her urine no longer has arthur blood and pelvic pain has improved this morning Plan: - Metronidazole, CFX, and doxycycline due to concern for potential ovarian abscess. If negative for abscess, will discontinue abx. - Follow up repeat TVUS and UA - Follow up A1c, CEA, and CA 125 - Repeat CBC at 1PM - MR pelvis with contrast pending - freight checker Dr. Fabian consulted, appreciate recommendations #Hypothyroidism - TSH 2.21 - Resume home [place] thyroid 120 mg daily #Bartholin cyst - Present on left lower vaginal opening on exam, nontender and nonerythematous but patient reports it is bothersome - Recommend outpatient follow up #HTN - resolved, 2/2 to pain Health Maintenance Disposition: med surg DVT prophylaxis: none GI prophylaxis: none Diet: regular CODE STATUS: FULL Patient plan of care was discussed with the attending physician, Dr. Rubalcava. Concepción Stanley DO, PGY-1 Attending Provider Attestation/Addendum Patient currently seen and examined with resident physician Dr. Stanley Note reviewed, agree with findings and recommendations. Patient currently seen in Er pending chemical blender consult CT showed left adnexal mass. Transvaginal US- ++ mass. On ABx
[2025-10-29 09:25] LABS: Thyroid Stimulating Hormone 2.21 uIU/mL (0.55-4.78)
[2025-10-29 09:43] LABS: Collection Type, Urine Clean Catch
[2025-10-29 09:50] LABS: Bilirubin,Urine Negative (Negative); Blood,Urine 2+ (Negative); Clarity,Urine Clear (Clear/Hazy); Color,Urine Lt-Yellow (Lt Yel-Yel); Glucose, Urine Negative (Negative); Ketones,Urine Negative (Negative); Leukocyte Esterase,Urine Positive (Negative); Nitrite,Urine Negative (Negative); PH,Urine 7.0 (5.0-7.0); Protein,Urine Negative (Neg - Trace); RBC,Urine 111 /hpf (0-3); Specific Gravity,Urine 1.015 (1.001-1.035); Squamous Epithelial Cell,Urine < 1 /hpf (0-5); Urobilinogen,Urine Negative mg/dL (0.0-1.0); WBC,Urine 108 /hpf (0-5)
[2025-10-29] MEDS: TRIMETHOPRIM/SULFA 160/800 DS TABLET 1 TAB PO (09:52)
[2025-10-29] MEDS: THYROID 30 MG TABLET 180 MG PO (09:56)
[2025-10-29 12:05] LABS: Glucose Estimated Average 103 mg/dL (80-131); Hemoglobin A1C 5.2 % Hgb (4.8-6.0)
[2025-10-29 12:30] LABS: Carcinoembryonic Antigen < 0.5 ng/mL (0.0-5.0)
[2025-10-29 13:07] LABS: CA 125 6.0 U/mL (<30.2)
[2025-10-29 13:26] LABS: Chlamydia trachomatis PCR Negative (Not Detect); Neisseria Gonorrhoeae DNA PCR Negative (Not Detect); Trichomonas Negative (Negative)
[2025-10-29 14:10] LABS: Basophils # (Auto) 0.1 Thou/mm3 (0.0-0.2); Basophils % (Auto) 1 % (0-2.5); Eosinophils # (Auto) 0.1 Thou/mm3 (0.0-0.5); Eosinophils % (Auto) 1 % (0-10); Hematocrit 36.9 % (36.0-46.0); Hemoglobin 13.2 g/dL (12.0-16.0); Immature Granulocytes Auto 0.02 Thou/mm3 (0.00-0.00); Lymphocytes # (Auto) 3.0 Thou/mm3 (1.0-4.8); Lymphocytes % (Auto) 27 % (10-50); Mean Corpuscular HGB Conc 35.8 g/dl (31.0-37.0); Mean Corpuscular Hemoglobin 31.8 pg (25.0-35.0); Mean Corpuscular Volume 89 fL (80-100); Monocytes # (Auto) 1.0 Thou/mm3 (0.0-0.8); Monocytes % (Auto) 9 % (0-12); Neutrophils # (Auto) 6.9 Thou/mm3 (1.8-7.7); Neutrophils % (Auto) 62 % (37-80); Nucleated Red Blood Cell # 0.00 Thou/mm3 (0.00-0.00); Nucleated Red Blood Cell % 0 /100 WBC (0); Platelet Count 258 Thou/mm3 (140-440); RDW Standard Deviation 38.5 fL (36.4-46.3); Red Blood Count 4.15 Miln/mm3 (4.00-5.20); White Blood Count 11.1 Thou/mm3 (3.6-11.0)
--- NOTE | 2025-10-29 15:05 | PD.GYNCONS ---
SENIOR RESEARCH PROJECT MANAGER HPI Data of Consult Requesting Physician: Brett Oneill MD Primary Care Provider: Eleanor Rubalcava MD Consult Narrative History of present illness: Malgorzata Bates presents with acute onset pelvic and lower abdominal pain that brought her to the emergency room. She reports that she believes she passed a kidney stone, describing significant hematuria with her urine being pure red for hours which has since cleared. She continues to experience some soreness which she attributes to a urinary tract infection. The patient mentions having a Bartholin's cyst that her provider has recommended not draining unless she has a full surgical procedure. She reports feeling much better overall and is ready to go home. The patient was initially evaluated in the ER with imaging studies including ultrasound, CT scan, and MRI due to concern for tubo-ovarian abscess. She follows up annually with Dr. Hart for pap smears and ultrasounds. She is a 40-year-old female. ROS: Genitourinary: Positive for hematuria (blood in urine described as pure red for hours ), urinary symptoms consistent with UTI. Negative for current hematuria (resolved). Musculoskeletal: Positive for soreness. Diagnostic Test Results and Labs: - Initial CT scan: No renal or ureter calculi, no hydronephrosis, normal appendix, 14-millimeter fat containing left adnexal mass, possibly consistent with dermoid - Initial pelvic ultrasound: Anteverted uterus 9 x 3.8 x 3.8 cm, endometrial stripe 3 mm, no discrete uterine mass, right ovary 3 x 3 cm with subcentimeter follicles, left ovary 3.8 x 3.2 cm with fat containing solid left ovarian structure 13 x 15 x 14 mm - Repeat ultrasound (morning): Uterus 8.6 cm, no uterine mass or gestation, endometrial stripe 0.36 cm, right ovary 3.4 cm with 9-millimeter follicular cyst, left ovary 3.5 cm with solid structure 17 x 14 x 18 mm, most likely consistent with endometrioma versus dermoid - Pelvic MRI: Uterus 9 x 3.8 x 3.8 cm, endometrial stripe 3 mm, no discrete uterine mass, right ovary 3 x 3 cm with follicles, left ovary 3.8 x 3.2 cm with fat containing solid left ovarian mass 13 x 15 x 14 mm - Hemoglobin A1c: 5.2 - Lactic acid: 0.9 - CEA: <0.5 - CA-125: 6.0 - TSH: 2.21 - Calcitonin: <0.04 - WBC count: 16.8 (on arrival), 11.1 (current) - Hemoglobin: 13.2 g/dL cc:: cc: Brett Oneill MD Meds Home Medications and Allergies Home Medications ?Medication ?Instructions ?Recorded ?Confirmed ?Type thyroid (pork) 120 mg tablet 120 mg PO QDAY 02/05/22 02/07/22 History ([place] Thyroid) ergocalciferol (vitamin D2) 1,250 1,250 mcg PO QWEEK 02/07/22 02/07/22 History mcg (50,000 unit) capsule (Vitamin D2) norethindrone (contraceptive) 0.35 0.35 mg PO QDAY 02/07/22 02/07/22 History mg tablet (Azucena) Allergies Allergy/AdvReac Type Severity Reaction Status Date / Time No Known Allergies Allergy Verified 10/28/25 19:33 Exam - SENIOR RESEARCH PROJECT MANAGER Vital Signs Temp Pulse Resp BP Pulse Ox O2 Del Method 98.5 F 99 17 130/99 H 98 Room Air 10/29/25 12:32 10/29/25 12:32 10/29/25 12:32 10/29/25 12:32 10/29/25 12:32 10/29/25 12:32 Constitutional Constitutional: no acute distress Routine HEENT Exam Head: Present normocephalic and atraumatic Eye: Present EOMI and PERRL ENT: Present mucous membranes moist Routine Neck Exam Neck: Present supple and trachea midline Routine Respiratory Exam Respiratory: Present chest non-tender, lungs clear, normal breath sounds and no resp distress Routine Cardiovascular Exam Cardiovascular: Present RRR Routine Abdominal Exam Abdominal: Present soft and normoactive bowel sounds Routine Extremities Exam Extremities: Present full ROM Routine Skin Exam Skin: Present intact and dry Routine Neurological Exam Neurological: Present alert, oriented X3 and CN II-XII intact Routine Psychiatric Exam Psychiatric: Present normal affect and normal thought process SENIOR RESEARCH PROJECT MANAGER - Results Labs 10/29/25 13:58 10/28/25 20:30 Labs: Short CBC 10/28/25 10/29/25 Range/Units 20:30 13:58 WBC 16.8 H 11.1 H D (3.6-11.0) Thou/mm3 Hgb 14.2 13.2 (12.0-16.0) g/dL Hct 41.7 36.9 (36.0-46.0) % Plt Count 270 258 (140-440) Thou/mm3 BMP 10/28/25 20:30 Sodium 139 Potassium 3.9 Chloride 104 Carbon Dioxide 26.0 BUN 10 Creatinine 0.6 Glucose 90 Calcium 9.5 Liver Function 10/28/25 Range/Units 20:30 Total Bilirubin 0.6 (0.3-1.2) mg/dL AST 28 (0-34) U/L ALT 32 (10-49) U/L Alkaline Phosphatase 66 (46-116) U/L Albumin 4.6 (3.5-5.0) gm/dL Urine 10/28/25 10/29/25 Range/Units 20:23 09:40 Urine Color Red A Lt-Yellow (Lt Yel-Yel) Urine Clarity Turbid A Clear (Clear/Hazy) Urine pH 6.0 7.0 (5.0-7.0) Ur Specific [place] 1.016 1.015 (1.001-1.035) Urine Protein 2+ A Negative (Neg - Trace) Urine Glucose (UA) Negative Negative (Negative) Assessment and Plan Assessment and plan (1) Pelvic pain: Status: Acute Assessment and plan: Left Ovarian Dermoid Cyst: - Small fat-containing solid left ovarian mass measuring approximately 1.7-1.8 cm in largest dimension. - Multiple imaging studies including CT scan, pelvic ultrasound, and MRI consistently demonstrate imaging characteristics most consistent with dermoid cyst. - All tumor markers including CEA, CA-125, TSH, and calcitonin within normal limits. Plan: - Conservative management with observation given small size (under 2 cm in all dimensions). - Annual surveillance with pelvic ultrasound. - Follow-up with primary cake mixer Dr. Hart for routine monitoring. - No surgical intervention indicated at this time unless cyst grows to 5 cm or larger. Suspected Kidney Stone Passage: - Patient reports passage of kidney stone with associated gross hematuria that has now resolved. - CT scan confirmed no renal or ureteral calculi and no hydronephrosis. Plan: - Discharge home as symptoms have resolved. - Continue antibiotics for associated UTI symptoms. Urinary Tract Infection: - Patient reports ongoing UTI symptoms with some soreness. - White blood cell count improved from 16.8 on admission to 11.1, indicating response to antibiotic therapy. Plan: - Discharge home on antibiotics for continued treatment. - WBC count improvement suggests antibiotics are effective. - Follow-up with Dr. Hart for routine annual examination and pelvic ultrasound monitoring of ovarian cyst. (2) UTI (urinary tract infection): Status: Acute (3) SIRS (systemic inflammatory response syndrome): Status: Acute
--- NOTE | 2025-10-29 15:51 | PD.RESDS ---
Planned Discharge Date 10/29/25 DS: Providers Provider Date of admission: 10/29/25 05:57 Primary care physician: Eleanor Rubalcava MD Admitting Provider: Eleanor Rubalcava MD Attending Provider on Admission: Brett Oneill MD Consults: 10/29/25 05:58 Consult to Gynecology Stat Comment: ovarian abscess Consulting Provider: Shereen Fabian Attending Provider on DC: Eleanor Rubalcava MD Discharging Provider: oCncepción Stanley DO DS: Diagnosis Problem List Completed Was Problem List Reviewed/Reconciled?: Yes Hospital Course Hospital Course Hospital course: Reason for hospitalization: Patient is a 40 year old female with past medical history of PCOS, genital herpes, bartholin cyst, hypothyroidism who presented to ED overnight on 10/28 for bilateral pelvic pain, worse on the left, fever, nausea, and hematuria for the past day. Went to [facility] day before for same symptoms and was prescribed Bactrim, never took it. Hematuria resolved next morning, suspect patient passed renal stone. Consulted demolition crane operator Dr. Fabian/Dr. Oneill due to concern for pelvic mass. TVUS and MRI pelvis with contrast showed 17mm left ovarian dermoid cyst, can follow up outpatient with Dr. aHrt. Pelvic pain improved. Patient was medically stable for discharge, sent home with 7 day course of metronidazole and 5 day course of Bactrim. Discharge Recommendations: -Complete 7 day course of metronidazole and 5 day course of Bactrim for possible pelvic infection/UTI -Follow up with PCP within 1 week of discharge -Follow up with physical therapy assistant Dr. Hart 1-2 weeks after discharge -Continue rest of medications as previously prescribed -Return to the ED or call EMS if symptoms return and/or worsen. Hospital Diagnoses: #Ureteric calculi, passed #Left ovarian dermoid cyst #Hypothyroidism #Bartholin cyst #HTN Disposition: Home Time Spent with Patient Time attestation: Total time spent providing and/or coordinating discharge services: Time spent: Greater than 30 minutes Exam Vital Signs Temp Pulse Resp BP Pulse Ox O2 Del Method 98.5 F 99 17 130/99 H 98 Room Air 10/29/25 12:32 10/29/25 12:32 10/29/25 12:32 10/29/25 12:32 10/29/25 12:32 10/29/25 12:32 Narrative Exam Physical Exam General: Awake and in no acute distress. Conversational and non-toxic appearing. HEENT: Normocephalic, atraumatic, mucous membranes moist. Heart: Regular rate and rhythm, normal S1 and S2, no murmurs. Lungs: Clear to auscultation with no wheezing or crackles. Abdomen: Soft, nondistended, positive bowel sounds. Mild tenderness in pelvic region No guarding or rebound tenderness. Neurologic: Alert and oriented x3, no gross neurological deficit, and patient able to move all 4 extremities. Extremities: No edema. Skin: No rash or ecchymoses. Discharge Plan Plan Patient Disposition: HOME (Self Care) Care Plan Goals: Discharge instructions: - Take Bactrim for 5 days for UTI and metronidazole for 7 days for anaerobic coverage - Follow up with PCP within 1 week of discharge - Follow up with gynocologist Dr. Hart within 1-2 weeks from discharge - Return to ED if symptoms return or worsen. Prescriptions/Referrals Prescriptions/Med Rec: New metronidazole 500 mg tablet 500 mg PO BID Qty: 14 0RF Continued thyroid (pork) [[place] Thyroid] 120 mg Tablet 120 mg PO QDAY ergocalciferol (vitamin D2) [Vitamin D2] 1,250 mcg (50,000 unit) Capsule 1,250 mcg PO QWEEK norethindrone (contraceptive) [Azucena] 0.35 mg Tablet 0.35 mg PO QDAY sulfamethoxazole-trimethoprim [Bactrim DS] 800-160 mg tablet 1 tab PO BID Qty: 10 0RF Referrals: Eleanor Rubalcava MD [Primary Care Provider, Nephrology] Patient/Caregiver Discharge Instructions Discharge Activity: activity as tolerated Print Language: Amharic Activity Restrictions/Additional Instructions: f/u with Dr. Mai Sal- 1-2 weeks Stand Alone Forms: Flor Award Info., Patient Portal Info Letter Discharge Order Discharge Orders: Discharge (Routine); Ordered 10/29/25 Ordered By: Concepción Stanley Quality Discharge Quality Measures VTE prophylaxis Attestestation MD Attestation Patient currently seen and examined with resident physician Dr. Stanley. Note reviewed, agree with findings and recommendations. Patient currently seen in ER. MRI showed desmoid tumor. Dr. Stewart recommended discharge with 1 week of anaerobic coverage. Metronidazole was sent. Will discharge home and follow-up with me in 1 week.
== END 2025-10-29 15:59 | disposition home or self-care (01) ==
LOC: SERX 10-29 04:53 → SERHOLD 10-29 06:19
PROVIDERS: Obstetrics & Gynecology; Physician Assistant; Emergency Provider Emergency Medicine; PCP Internal Medicine
DX: N39.0 Urinary tract infection, site not specified (principal); D27.1 Benign neoplasm of left ovary; N90.89 Other specified noninflammatory disorders of vulva and perineum; I10 Essential (primary) hypertension; E03.9 Hypothyroidism, unspecified; R31.9 Hematuria, unspecified; E28.2 Polycystic ovarian syndrome
CPT/HCPCS: 36415; 72196; 74176; 76830; 76856; 80053; 80307; 81001; 81025; 82378; 83036; 83605; 84145; 84443; 85025; 85610; 85652; 86140; 86304; 87040; 87491; 87591; 87661; 96365; 96366; 96372; 99284; A9577; J0696; J1885; J3490; J7120; Q0162; A9270; J1836